=== PATIENT | male | born 1955 | race Caucasian/White ===

== ENCOUNTER 2018-07-29 12:00 | Emergency (ER) | payer BC ==
[2018-07-29 12:06] VITALS: TEMP 98.1
--- NOTE | 2018-07-29 15:13 | ED ---
General Adult HPI - General Chief complaint: Extremity Problem,Nontraumatic Stated complaint: swollen legs-sent by Source: patient Mode of arrival: ambulatory Limitations: no limitations - History of Present Illness Initial comments: Dictation was produced using [employer] dictation software. please excuse any grammatical, word or spelling errors. Chief Complaint: 62-year-old male with past medical history of hypertension and osteoporosis arthritis presents via instruction from his primary care physician for Lasix administration. History of Present Illness: Patient is 62-year-old male with past medical history of hypertension and also arthritis presents via instruction by his primary care physician come in for IV Lasix. Patient states he's been dealing with chronic lower extremity water retention for the past several weeks. He has been on 40 mg of by mouth Lasix a day. Patient states that he was told to come to the emergency department because of excessive water retention. He is unable to work given that his legs are so swollen that he can put on issues. Denies any shortness of breath. Patient states that he had an ultrasound of his heart performed several years ago with negative results. Patient has no other complaints. The ROS documented in this emergency department record has been reviewed and confirmed by me. Those systems with pertinent positive or negative responses have been documented in the HPI. All other systems are other negative and/or noncontributory. - Related Data Home Medications Medication Instructions Recorded Confirmed Furosemide [Lasix] 20 mg PO BID 07/29/18 07/29/18 Lisinopril [Prinivil] 20 mg PO DAILY 07/29/18 07/29/18 Multivitamins, Thera [Multivitamin 1 tab PO DAILY 07/29/18 07/29/18 (formulary)] Potassium Chloride [Klor-Con 10] 10 meq PO DAILY 07/29/18 07/29/18 Spironolactone 50 mg PO DAILY 07/29/18 07/29/18 Sulfamethoxazole/Trimethoprim 1 tab PO BID 07/29/18 07/29/18 [Bactrim DS 800-160 mg] amLODIPine BESYLATE [Norvasc] 2.5 mg PO DAILY 07/29/18 07/29/18 Previous Rx's Medication Instructions Recorded Potassium Chloride [Klor-Con 20 meq PO DAILY 3 Days #3 packet 07/29/18 Packets] Allergies Allergy/AdvReac Type Severity Reaction Status Date / Time No Known Allergies Allergy Verified 07/29/18 14:52 Review of Systems ROS Statement: Those systems with pertinent positive or pertinent negative responses have been documented in the HPI. ROS Other: All systems not noted in ROS Statement are negative. Past Medical History Past Medical History: Hypertension, Osteoarthritis (OA) Additional Past Medical History / Comment(s): water retention History of Any Multi-Drug Resistant Organisms: None Reported Past Surgical History: Orthopedic Surgery Past Psychological History: No Psychological Hx Reported Smoking Status: Former smoker Past Alcohol Use History: Occasional Past Drug Use History: None Reported General Exam - General Exam Comments Initial Comments: PHYSICAL EXAM: General Impression: Alert and oriented x3, not in acute distress HEENT: Normocephalic atraumatic, extra-ocular movements intact, pupils equal and reactive to light bilaterally, mucous membranes moist. Cardiovascular: Heart regular rate and rhythm, S1&S2 audible, no murmurs, rubs or gallops Chest: Lungs clear to auscultation bilaterally, no rhonchi, no wheeze, no rales Abdomen: Bowel sounds present, abdomen soft, non-tender, non-distended, no organomegaly Musculoskeletal: Pulses present and equal in all extremities, 3+ pitting edema bilateral lower extremities. There is a compression bandage placed on bilateral lower extremities Motor: Power 5/5 bilaterally, no focal deficits noted Neurological: CN II-XII grossly intact, no focal motor or sensory deficits noted Skin: Intact with no visualized rashes Psych: Normal affect and mood Limitations: no limitations Course Vital Signs 07/29/18 12:03 Temperature 98.1 F Pulse Rate 94 Respiratory 20 Rate Blood Pressure 142/78 O2 Sat by Pulse 98 Oximetry Medical Decision Making - Medical Decision Making ED course: 62-year-old male presents with instruction from primary care physician come to the emergency department for IV Lasix vital signs upon arrival are within acceptable limits. Patient is hemodynamically stable. No signs of shortness of breath. Denies any symptoms of orthopnea. No clinical suspicion of decompensated heart failure. Patient's swelling is only limited to his legs. There is no clinical suspicion of nephrotic or nephritic syndrome He has had negative echocardiogram couple years ago. Discussed patient case in detail with patient's primary care physician Dr. Mcgee. He does recall having patient sent in for Lasix administration. Labs were performed on the and . Patient is not hypokalemic. His creatinine was 0.90 1.17 respectively. Platelets reasonable for patient be given IV Lasix. Patient has borderline potassium level. He will be given 3 days of potassium supplementation. Told to follow-up with his primary care physician in 2-3 days for repeat evaluation. Patient told to lie flat with legs elevated to reduce swelling. He is told to maintain bilateral lower extremity bandages for treatment of fluid retention in the lower extremities. Patient understandable agreeable to disposition. To return to the emergency department with any worsening symptoms especially palpitations or generalized weakness. Disposition Clinical Impression: Edema Disposition: HOME SELF-CARE Condition: Good Prescriptions: Potassium Chloride [Klor-Con Packets] 20 meq PO DAILY 3 Days #3 packet Is patient prescribed a controlled substance at d/c from ED?: No Referrals: Brock Mcgee III, MD [Primary Care Provider] - 1-2 days Time of Disposition: 15:21
[2018-07-29] MEDS ORDERED: FUROSEMIDE 10 MG/ML 4 ML VIAL IV STA (15:18)
[2018-07-29 16:37] VITALS: BP 160/79; PULSE 82; RESP 18
== END 2018-07-29 16:57 | disposition home or self-care (01) ==
LOC: EC 12:00
DX: R60.0 Localized edema (principal); I10 Essential (primary) hypertension; Z87.891 Personal history of nicotine dependence; Z79.899 Other long term (current) drug therapy
CPT/HCPCS: 99283; 96374; J1940

== ENCOUNTER → 2020-12-08 | Outpatient (CLI) | payer BC, MEDICARE ==
[2020-12-08 16:23] VITALS: BP 131/80; PULSE 91; RESP 18; TEMP 98.4; BMI 54.1
--- NOTE | 2020-12-08 17:16 | P.HPBAR ---
Bariatric H&P - History & Physicial H&P Date: 12/08/20 History & Physicial: Visit/CC: initial visit Patient initial contact: Initial weight: Initial weight in pounds: Height: 5 ft 4.5 in Initial BMI: Last weight: Current weight: 145.15 kg Current weight in pounds: 320.00 Current BMI: 54.1 Mongo body weight (based on NIH guidelines): 60.328 kg Excess body weight loss: The patient is a 65 year-old M who presents for Bariatric Assessment. DATE OF SERVICE: 12/08/2020 REASON FOR CONSULTATION: Initial bariatric evaluation HISTORY OF PRESENT ILLNESS: Jerome Sánchez is a 65-year-old male who comes with lifelong morbid obesity. He has friends who had the sleeve. He is looking into the sleeve as well. He ambulates with a cane. His highest weight was 330 pounds. He has tried Nutrisystem for weight loss and he did lose weight. He has tried Keto diet. His brother has troubles with his weight as well. He denies previous abdominal surgery. He denies moderate gastroesophageal reflux disease. He denies dysphagia. His father had leukemia. His brother has diabetes. He has asthma, COPD. He has sleep apnea but cannot afford the machine. He has diverticular disease. He comes in with lower back and hip pain. He presents in consultation for the first time for surgical weight loss options. At height of 5 feet 4.5 inches, his ideal body weight is 144 pounds. His highest weight is 330 pounds, BMI 55.9. He comes in 319 pounds. His body mass index is 54.1. He is 175 pounds overweight. PAST MEDICAL HISTORY: 1. Morbid obesity due to excess calories 2. Body mass index of 54.1, initial 3. Osteoarthritis of the knees. 4. Osteoarthritis of the lower back. 5. Hypertensive heart disease. 6. Chronic obstructive pulmonary disease 7. Obstructive sleep apnea 8. Diverticulitis of the colon. 9. Osteoarthritis of the hips PAST SURGICAL HISTORY: 1. Denies abdominal surgery HOME MEDICATIONS: Home Medications Medication Instructions Recorded Confirmed Furosemide [Lasix] 20 mg PO BID 07/29/18 12/08/20 Multivitamins, Thera [Multivitamin 1 tab PO DAILY 07/29/18 12/08/20 (formulary)] Potassium Chloride [Klor-Con 10] 10 meq PO DAILY 07/29/18 12/08/20 Spironolactone 50 mg PO DAILY 07/29/18 12/08/20 Sulfamethoxazole/Trimethoprim 1 tab PO BID 07/29/18 12/08/20 [Bactrim DS 800-160 mg] amLODIPine BESYLATE [Norvasc] 2.5 mg PO DAILY 07/29/18 12/08/20 lisinopriL [Prinivil] 20 mg PO DAILY 07/29/18 12/08/20 Previous Rx's Medication Instructions Recorded Potassium Chloride [Klor-Con 20 meq PO DAILY 3 Days #3 packet 07/29/18 Packets] ALLERGIES: Allergies Allergy/AdvReac Type Severity Reaction Status Date / Time No Known Allergies Allergy Verified 12/08/20 15:54 SOCIAL HISTORY: Past tobacco use. FAMILY HISTORY: No family history of ulcerative colitis disease or Crohn's disease. Family history of morbid obesity. No lupus in the family. No reports of stomach or esophageal cancer. His father had leukemia. His brother has diabetes. REVIEW OF ORGAN SYSTEMS: CONSTITUTIONAL: At height of 5 feet 4.5 inches, his ideal body weight is 144 pounds. His highest weight is 330 pounds, BMI 55.9. He comes in 319 pounds. His body mass index is 54.1. He is 175 pounds overweight. HEENT: Denies any active troubles with vision or hearing. ENDOCRINE: Denies diabetes. No hypothyroidism. CARDIOVASCULAR: Past reports of palpitations or heart attacks or chest pain. Has congestive heart failure with hypertensive heart disease. RESPIRATORY: Has daytime somnolence. Has asthma. Has sleep apnea, untreated. GASTROINTESTINAL: Denies any bright red blood per rectum. No diarrhea. No constipation. Has diverticular disease of the colon. MUSCULOSKELETAL: Has lower back pain and joint pain. Has osteoarthritis of the knees. History of bilateral lower extremity edema. NEURO: No headaches. No seizure disorders. PSYCH: Denies depression. No suicidal ideation. RHEUMATOLOGIC: No lupus. No rheumatoid arthritis. HEMATOLOGIC: Denies any abnormal bleeding or bruising. No personal history of DVTs. SKIN: No rash. No skin cancer. PHYSICAL EXAM: VITAL SIGNS: Height 5 foot 4.5 inches, weight 319 pounds. BMI 54.1 Vital Signs Temp 98.4 F 12/08/20 15:47 Pulse 91 01/27/21 15:47 Resp 18 12/08/20 15:47 BP 131/80 12/08/20 15:47 Pulse Ox GENERAL: Well-developed in no acute distress. HEENT: No scleral icterus. Extraocular movements grossly intact. Hears conversational speech. No nasal drainage. NECK: Supple without lymphadenopathy. CHEST: Nonlabored respirations with equal bilateral excursions. CARDIOVASCULAR: Regular rate and regular rhythm. Distal 2+ pulses. ABDOMEN: Obese, soft, nontender, nondistended. MUSCULOSKELETAL: No clubbing, cyanosis. Ambulates with a cane NEURO: No focal or lateralizing signs. Cranial nerves 2 through 12 grossly within normal limits. PSYCH: Appropriate affect. Alert and oriented to person, place and time. SKIN: Good skin turgor. Well perfused. ASSESSMENT: 1. Morbid obesity due to excess calories 2. Body mass index of 54.1, initial 3. Osteoarthritis of the knees. 4. Osteoarthritis of the lower back. 5. Hypertensive heart disease. 6. Chronic obstructive pulmonary disease 7. Obstructive sleep apnea 8. Diverticulitis of the colon. 9. Osteoarthritis of the hips PLAN: 1. Surgical options including a band, gastric bypass, sleeve gastrectomy were described in detail. Alternatives such as gastric balloon including duodenal switch were described. She is looking into the gastric bypass. 2. The [place] bariatric surgical collaborative data and outcomes calculator were described with surgical options. 3. Recommend a bariatric metabolic panel to evaluate for micro- including macronutrient deficiencies. 4. For history of daytime somnolence, recommend evaluation and treatment for sleep apnea. 5. Dietary surveillance and counseling was reviewed. Increased protein intake over 65 grams daily advised. 6. Will need cardiac risk assessment. 7. Recommend medical risk assessment. 8. Psych assessment per insurance guidelines. 9. Recommend upper endoscopy. 10. Recommend 12-lead EKG. Thank you for this consultation. Past Medical History Past Medical History: Hypertension, Osteoarthritis (OA) Additional Past Medical History / Comment(s): water retention; oral surgery 1970s History of Any Multi-Drug Resistant Organisms: None Reported Past Surgical History: Orthopedic Surgery Past Anesthesia/Blood Transfusion Reactions: No Reported Reaction Past Psychological History: No Psychological Hx Reported Smoking Status: Former smoker Past Alcohol Use History: Occasional Past Drug Use History: None Reported Surgical - Exam Vital Signs Temp Pulse Resp BP 98.4 F 91 18 131/80 12/08/20 15:47 12/08/20 15:47 12/08/20 15:47 12/08/20 15:47 Bariatric Checklist Checklist: Plan: Checklist: EGD: 1. Hiatal hernia: 2. H. Pylori: HgbA1c: Vitamin D: Smoking: Former smoker Primary care physician referral: Dr. Hamilton / Mai MARIN Psychiatry clearance: Cardiology clearance: Sleep study: Diet journal: VTE risk score: VTE risk level: Rehab needs at discharge:
== END | disposition home or self-care (01) ==
LOC: BARWHC3 15:29
PROVIDERS: ATTEND Surgery Plastic and Reconstructive Surgery
DX: E66.01 Morbid (severe) obesity due to excess calories (principal); M17.0 Bilateral primary osteoarthritis of knee; I11.9 Hypertensive heart disease without heart failure; J44.9 Chronic obstructive pulmonary disease, unspecified; G47.33 Obstructive sleep apnea (adult) (pediatric); K57.32 Diverticulitis of large intestine without perforation or abscess without bleeding; M16.6 Other bilateral secondary osteoarthritis of hip; Z68.43 Body mass index [BMI] 50.0-59.9, adult; Z79.899 Other long term (current) drug therapy; Z87.891 Personal history of nicotine dependence; Z79.83 Long term (current) use of bisphosphonates
CPT/HCPCS: 99211

== ENCOUNTER → 2020-12-15 | Outpatient (CLI) | payer MEDICARE ==
[2020-12-15 22:51] LABS: HCT 39.8 % (39.6-50.0); HGB 13.7 g/dL (13.0-17.0); MCH 30.8 pg (27.0-32.0); MCHC 34.4 g/dL (32.0-37.0); MCV 89.4 fL (80.0-97.0); Mean Platelet Volume 10.8 fL (9.5-12.2); Platelet Count 253 X 10*3/uL (140-440); RBC 4.45 X 10*6/uL (4.40-5.60); RDW 13.3 % (11.5-14.5); WBC 9.67 X 10*3/uL (4.50-10.00)
[2020-12-16 00:04] LABS: INR 1.03 (0.90-1.11); Partial Thromboplastin Time 34.4 sec (23.5-31.0); Prothrombin Time 11.2 sec (9.9-11.9)
[2020-12-16 01:21] LABS: Hemoglobin A1C 5.2 % (4.0-6.0)
[2020-12-16 05:03] LABS: % Iron Saturation 16.97 (15.00-50.00); African American GFR (CKD) 51.6 (60.0-200.0); Albumin 4.4 g/dL (3.80-4.90); Albumin/Globulin Ratio 1.76 (1.60-3.17); Anion Gap 10.3 mmol/L (4.00-12.00); BUN/Creat Ratio 16.88 Ratio (12.00-20.00); Calcium 9.6 mg/dL (8.7-10.3); Carbon Dioxide 24.7 mmol/L (21.6-31.8); Chol/HDL Ratio 5.19; Globulin 2.5 g/dL (1.6-3.3); LDL Cholesterol,Calculated 74.2 mg/dL (0.0-131.0); Magnesium 1.8 mg/dL (1.5-2.4); Non-African American GFR(CKD) 44.5 (60.0-200.0); Phosphorus 3.5 mg/dL (2.4-5.1); Potassium 4.1 mmol/L (3.5-5.5); Total Bilirubin 0.6 mg/dL (0.3-1.2); Total Protein 6.9 g/dL (6.2-8.2); VLDL Calculation 55.8 mg/dL (5.00-40.00)
[2020-12-16 05:10] LABS: Prostate Specific Antigen 0.4 ng/mL (0.0-4.5)
[2020-12-16 05:42] LABS: Ferritin 565.1 ng/mL (22.0-322.0); Folate, Serum 15.2 ng/mL
[2020-12-17 06:43] LABS: Vitamin A 47 ug/dL (38-106)
== END | disposition home or self-care (01) ==
LOC: LABWHC1 12-14 09:53
PROVIDERS: ATTEND Surgery Plastic and Reconstructive Surgery
DX: N18.2 Chronic kidney disease, stage 2 (mild) (principal); R35.0 Frequency of micturition; E66.01 Morbid (severe) obesity due to excess calories; K50.90 Crohn's disease, unspecified, without complications; K74.1 Hepatic sclerosis; E55.9 Vitamin D deficiency, unspecified; K90.89 Other intestinal malabsorption; D50.8 Other iron deficiency anemias; E89.1 Postprocedural hypoinsulinemia
CPT/HCPCS: 36415; 80053; 80061; 82306; 82525; 82607; 82728; 82746; 83036; 83540; 83550; 83735; 83970; 84100; 84134; 84153; 84255; 84425; 84443; 84590; 84630; 85027; 85610; 85730; 93005

== ENCOUNTER → 2020-12-29 | Outpatient (CLI) | payer MEDICARE ==
--- NOTE | 2020-12-29 15:19 | US ---
LOWER EXTREMITY VENOUS INSUFFICIENCY CLINICAL HISTORY: l197.812 NONPRESSURE CHRONIC ULCER OF OTHER PART O. SIDE PERFORMED: Right 1) Color flow is present and patency is documented in the following vessels. No DVT or SVT is noted . Common Femoral Vein Deep Femoral Vein Femoral Vein Popliteal Vein Proximal Calf Veins Greater Saph Vein Upper Small Saph Vein 2) There is venous reflux noted at the following venous levels: proximal right femoral vein IMPRESSION: Venous reflux as noted.
--- NOTE | 2021-01-05 10:12 | P.ARTDOP ---
Arterial Doppler LOWER EXTREMITY ARTERIAL DOPPLER: DATE OF SERVICE: 12/29/2020 Reason for study: Bilateral calf ulcers. Doppler waveforms: Multiphasic bilaterally throughout. Pulse volume recording: []. Pressure gradients: None significant. Ankle-brachial indices: 0.92 on the right and 0.96 on the left. Toe brachial indices: 0.69 on the right, 0.65 on the left Impression: Normal study.
== END | disposition home or self-care (01) ==
LOC: RADUSWWP 13:43
PROVIDERS: ATTEND Family Medicine
DX: I87.2 Venous insufficiency (chronic) (peripheral) (principal)
CPT/HCPCS: 93923

== ENCOUNTER → 2021-04-05 | Outpatient (CLI) | payer MEDICARE ==
--- NOTE | 2021-04-07 20:01 | ECHOF ---
Referral Reason:R60.0 Localized edema MEASUREMENTS -------- HEIGHT: 162.6 cm WEIGHT: 147.0 kg BP: IVSd: 1.3 cm (0.6 - 1.1) LVIDd: 4.9 cm (3.9 - 5.3) LVPWd: 1.3 cm (0.6 - 1.1) EDV(Teich): 114 ml IVSs: 1.9 cm LVIDs: 3.1 cm LVPWs: 1.8 cm %IVS Thck: 44 % ESV(Teich): 39 ml EF(Teich): 66 % %FS: 36 % SV(Teich): 75 ml LA Diam: 3.1 cm (2.7 - 3.8) RVIDd: 3.3 cm (< 3.3) LALs A4C: 5.4 cm LAAs A4C: 17.2 cm LAESV A-L A4C: 47 ml LAESV MOD A4C: 45 ml LALs A2C: 4.9 cm LAAs A2C: 15.9 cm LAESV A-L A2C: 44 ml LAESV MOD A2C: 39 ml LAESV(A-L): 47 ml LAESV Index (A-L): 19.66 ml/m Ao Diam: 3.8 cm (2.0 - 3.7) AV Cusp: 2.1 cm (1.5 - 2.6) EPSS: 0.3 cm MV E Jhon: 0.94 m/s MV DecT: 129 ms MV Dec Wallace: 7.3 m/s MV A Jhon: 1.09 m/s MV E/A Ratio: 0.86 MV PHT: 37 ms AV Vmax: 1.60 m/s AV maxP.28 mmHg TR Vmax: 2.08 m/s TR maxP.27 mmHg RAP: 5.00 mmHg RVSP: 22.27 mmHg MV EF SLOPE: 107.08 mm/s (70 - 150) MV EXCURSION: 17.33 mm (> 18.000) FINDINGS -------- Sinus rhythm. This was a technically adequate study. The left ventricular size is normal. There is moderate concentric left ventricular hypertrophy. O verall left ventricular systolic function is normal with, an EF between 60 - 65 %. The right ventricle is mildly enlarged. Normal LA size by volume 22+/-6 ml/m2. The right atrium is normal in size. Interatrial and interventricular septum intact. There is mild aortic valve sclerosis. The mitral valve is normal. Mild tricuspid regurgitation present. Right ventricular systolic pressure is normal at < 35 mmHg. Trace/mild (physiologic) pulmonic regurgitation. The aortic root is dilated measuring 3.8cm. IVC Not well visulized. There is no pericardial effusion. CONCLUSIONS -------- 1. The left ventricular size is normal. 2. There is moderate concentric left ventricular hypertrophy. 3. Overall left ventricular systolic function is normal with, an EF between 60 - 65 %. 4. The right ventricle is mildly enlarged. 5. There is mild aortic valve sclerosis. 6. Mild tricuspid regurgitation present. 7. Trace/mild (physiologic) pulmonic regurgitation. 8. The aortic root is dilated measuring 3.8cm. 9. There is no pericardial effusion. OPEN DEVELOPER OPERATOR: Apryl Gar RDCS
== END | disposition home or self-care (01) ==
LOC: RADECHMAIN 14:39
PROVIDERS: ATTEND Nurse Practitioner Family
DX: I08.8 Other rheumatic multiple valve diseases (principal)
CPT/HCPCS: 93005; 93306

== ENCOUNTER → 2021-05-02 | Outpatient (CLI) | payer MEDICARE | LOC: BARWHC3 08:47 | PROVIDERS: ATTEND Surgery Plastic and Reconstructive Surgery | DX: E66.01 Morbid (severe) obesity due to excess calories (principal); Z71.3 Dietary counseling and surveillance | CPT/HCPCS: 99211 ==

== ENCOUNTER 2021-05-23 07:48 | Day surgery (SDC) | payer MEDICARE ==
[2021-05-19 14:33] VITALS: BMI 54.9
--- NOTE | 2021-05-23 07:38 | P.GSHP ---
History of Present Illness H&P Date: 05/23/21 CHIEF COMPLAINT: GERD HISTORY OF PRESENT ILLNESS: The patient is a 65-year-old male who presents reports gastroesophageal reflux disease. Upper endoscopy was offered for further evaluation and management. PAST MEDICAL HISTORY: Please see list. PAST SURGICAL HISTORY: Please see list. MEDICATIONS: Please see list. ALLERGIES: Please see list. SOCIAL HISTORY: No illicit drug use FAMILY HISTORY: No reports of Crohn disease or ulcerative colitis. REVIEW OF ORGAN SYSTEMS: CONSTITUTIONAL: No reports of fevers or chills. GI: Denies any blood in stools or constipation. PHYSICAL EXAM: VITAL SIGNS: Stable GENERAL: Well-developed and pleasant in no acute distress. HEENT: No scleral icterus. Extraocular movements grossly intact. Moist buccal mucosa. NECK: Supple without lymphadenopathy. CHEST: Unlabored respirations. Equal bilateral excursions. CARDIOVASCULAR: Regular rate and rhythm. Distal 2+ pulses. ABDOMEN: Soft, nondistended. MUSCULOSKELETAL: No clubbing, cyanosis, or edema. ASSESSMENT: 1. Gastroesophageal reflux disease PLAN: 1. Recommend proceeding with an upper endoscopy Past Medical History Past Medical History: Hypertension, Osteoarthritis (OA) Additional Past Medical History / Comment(s): water retention-slight edema lower legs and joby feet, occ migraines, diverticulitis, History of Any Multi-Drug Resistant Organisms: None Reported Past Surgical History: Orthopedic Surgery Additional Past Surgical History / Comment(s): joby knee arthoscopy x (2 left, one rt knee) , left knee surgery, oral surgery, Past Anesthesia/Blood Transfusion Reactions: No Reported Reaction Smoking Status: Former smoker - Past Family History Father Family Medical History: Cancer Additional Family Medical History / Comment(s): leukemia Medications and Allergies Home Medications Medication Instructions Recorded Confirmed Type Albuterol Inhaler [Ventolin Hfa 2 puff INHALATION RT-QID PRN 12/13/20 05/19/21 History Inhaler] Cholecalciferol [Vitamin D3 (25 25 mcg PO BID 12/13/20 05/19/21 History Mcg = 1000 Iu)] Cyanocobalamin (Vitamin B-12) 1,000 mcg PO DAILY 12/13/20 05/19/21 History [Vitamin B-12] Furosemide [Lasix] 40 mg PO BID 12/13/20 05/19/21 History Ginseng 250 mg PO BID 12/13/20 05/19/21 History Glucosamine Sulfate 500 mg PO BID 12/13/20 05/19/21 History Lisinopril-Hctz 20-12.5 mg 1 tab PO BID 12/13/20 05/19/21 History [Zestoretic 20-12.5] Loratadine [Claritin] 10 mg PO HS 12/13/20 05/19/21 History Montelukast [Singulair] 10 mg PO HS 12/13/20 05/19/21 History Multivitamins, Thera [Multivitamin 1 tab PO DAILY 12/13/20 05/19/21 History (formulary)] [place]-3/Dha/Epa/Fish Oil [Fish Oil 1 each PO BID 12/13/20 05/19/21 History 500 mg Softgel] Omeprazole 20 mg PO DAILY 12/13/20 05/19/21 History Potassium Chloride [Klor-Con 10] 10 meq PO DAILY 12/13/20 05/19/21 History Spironolactone 100 mg PO DAILY 12/13/20 05/19/21 History traMADol HCL [Ultram] 100 mg PO Q12HR PRN 12/13/20 05/19/21 History Aspirin [Adult Low Dose Aspirin EC] 81 mg PO DAILY 05/19/21 05/19/21 History Allergies Allergy/AdvReac Type Severity Reaction Status Date / Time No Known Allergies Allergy Verified 05/19/21 14:20
[~2021-05-23 07:48] MED LIST: LACTATED RINGERS 1,000 ML IV SCH
[2021-05-23 08:28] VITALS: TEMP 97.2
[2021-05-23] MEDS ORDERED: MIDAZOLAM 2 MG/2 ML VIAL ONE (08:35)
[2021-05-23] MEDS ORDERED: KETAMINE 10 MG/ML 20 ML VIAL ONE (08:35)
[2021-05-23] MEDS ORDERED: PROPOFOL 10 MG/ML 20 ML VIAL IV ONE (08:35)
--- NOTE | 2021-05-23 08:53 | P.PCN ---
Date of Procedure: 05/23/21 Description of Procedure: PREOPERATIVE DIAGNOSIS: Gastroesophageal reflux disease. Morbid obesity. POSTOPERATIVE DIAGNOSIS: Morbid obesity. Gastritis. Gastroesophageal reflux disease. Diaphragmatic hiatal hernia OPERATION: Esophagogastroduodenoscopy with biopsies along antrum. SURGEON: Fariha Quijano MD ANESTHESIA: MAC. INDICATIONS: The patient is a 65-year-old male who presents with a history of reflux disease. Benefits and risks of the procedure were described. Informed consent was obtained. DESCRIPTION: The patient was brought into the endoscopy suite and laid in the left lateral decubitus position. An Olympus gastroscope was passed along the posterior oropharynx down to the distal esophagus where the squamocolumnar junction was encountered at 40 cm from the incisors. The stomach was entered and no bile reflux was found. Additional findings are listed below. Biopsies with cold for ceps were obtained of the antrum. The first through third portion of the duodenum was examined and unremarkable. Retroflexion of the scope confirmed Hill grade 3 lower esophageal valve. The squamocolumnar junction demonstrated LA grade B erosive esophagitis. The stomach was desufflated. The patient tolerated the procedure well. FINDINGS: Squamocolumnar junction 40 cm from the incisors. Diaphragmatic hiatus at 41 cm. Hiatal hernia, 1 cm Hill grade 3 lower esophageal valve. LA grade B erosive esophagitis. No active duodenitis. Chronic gastritis RECOMMENDATIONS: Upper endoscopy as needed. Plan - Discharge Summary New Discharge Prescriptions: New Omeprazole [PriLOSEC] 40 mg PO DAILY #14 cap Continue Multivitamins, Thera [Multivitamin (formulary)] 1 tab PO DAILY Glucosamine Sulfate 500 mg PO BID Cyanocobalamin (Vitamin B-12) [Vitamin B-12] 1,000 mcg PO DAILY [place]-3/Dha/Epa/Fish Oil [Fish Oil 500 mg Softgel] 1 each PO BID Ginseng 250 mg PO BID Cholecalciferol [Vitamin D3 (25 Mcg = 1000 Iu)] 25 mcg PO BID Albuterol Inhaler [Ventolin Hfa Inhaler] 2 puff INHALATION RT-QID PRN PRN Reason: Shortness Of Breath Montelukast [Singulair] 10 mg PO HS Loratadine [Claritin] 10 mg PO HS Furosemide [Lasix] 40 mg PO BID Lisinopril-Hctz 20-12.5 mg [Zestoretic 20-12.5] 1 tab PO BID traMADol HCL [Ultram] 100 mg PO Q12HR PRN PRN Reason: Pain Spironolactone 100 mg PO DAILY Potassium Chloride [Klor-Con 10] 10 meq PO DAILY Aspirin [Adult Low Dose Aspirin EC] 81 mg PO DAILY Discontinued Omeprazole 20 mg PO DAILY Discharge Medication List Albuterol Inhaler [Ventolin Hfa Inhaler] 2 puff INHALATION RT-QID PRN 12/13/20 [History] Cholecalciferol [Vitamin D3 (25 Mcg = 1000 Iu)] 25 mcg PO BID 12/13/20 [History] Cyanocobalamin (Vitamin B-12) [Vitamin B-12] 1,000 mcg PO DAILY 12/13/20 [History] Furosemide [Lasix] 40 mg PO BID 12/13/20 [History] Ginseng 250 mg PO BID 12/13/20 [History] Glucosamine Sulfate 500 mg PO BID 12/13/20 [History] Lisinopril-Hctz 20-12.5 mg [Zestoretic 20-12.5] 1 tab PO BID 12/13/20 [History] Loratadine [Claritin] 10 mg PO HS 12/13/20 [History] Montelukast [Singulair] 10 mg PO HS 12/13/20 [History] Multivitamins, Thera [Multivitamin (formulary)] 1 tab PO DAILY 12/13/20 [History] [place]-3/Dha/Epa/Fish Oil [Fish Oil 500 mg Softgel] 1 each PO BID 12/13/20 [History] Potassium Chloride [Klor-Con 10] 10 meq PO DAILY 12/13/20 [History] Spironolactone 100 mg PO DAILY 12/13/20 [History] traMADol HCL [Ultram] 100 mg PO Q12HR PRN 12/13/20 [History] Aspirin [Adult Low Dose Aspirin EC] 81 mg PO DAILY 05/19/21 [History] Omeprazole [PriLOSEC] 40 mg PO DAILY #14 cap 05/23/21 [Rx] [place] [facility]ment(s[facility]Ref[place] [facility] [place] Patient Instructions/Handouts: Gastritis (DC), Hiatal Hernia (DC) Activity/Diet/Wound Care/Special Instructions: New prescription at local pharmacy Discharge Disposition: HOME SELF-CARE
[2021-05-23 09:11] VITALS: BP 110/62; PULSE 92; RESP 20
== END 2021-05-23 09:28 | disposition home or self-care (01) ==
LOC: ORWHC2ENDO 07:48
PROVIDERS: ATTEND Surgery Plastic and Reconstructive Surgery
DX: K29.50 Unspecified chronic gastritis without bleeding (principal); K44.9 Diaphragmatic hernia without obstruction or gangrene; K21.9 Gastro-esophageal reflux disease without esophagitis; K22.10 Ulcer of esophagus without bleeding; Z87.19 Personal history of other diseases of the digestive system; Z87.891 Personal history of nicotine dependence; E66.01 Morbid (severe) obesity due to excess calories; Z68.43 Body mass index [BMI] 50.0-59.9, adult; I10 Essential (primary) hypertension; M19.90 Unspecified osteoarthritis, unspecified site; Z80.6 Family history of leukemia; E78.5 Hyperlipidemia, unspecified; J44.9 Chronic obstructive pulmonary disease, unspecified; G47.33 Obstructive sleep apnea (adult) (pediatric); E11.9 Type 2 diabetes mellitus without complications; Z98.890 Other specified postprocedural states; G43.909 Migraine, unspecified, not intractable, without status migrainosus; Z79.82 Long term (current) use of aspirin; Z79.899 Other long term (current) drug therapy
CPT/HCPCS: 88305; 88342; 43239; J2250; J2704

== ENCOUNTER → 2021-07-28 | Outpatient (CLI) | payer MEDICARE ==
[2021-07-28 15:59] LABS: Basophils % (A) 0 %; Eosinophils # (A) 0.2 k/uL (0-0.7); Eosinophils % (A) 2 %; HGB 14.2 gm/dL (13.0-17.5); Lymphocytes # (A) 1.2 k/uL (1.0-4.8); Lymphocytes % (A) 15 %; MCH 32.1 pg (25.0-35.0); MCHC 35.5 g/dL (31.0-37.0); MCV 90.3 fL (80.0-100.0); Mean Platelet Volume 7.9; Monocytes # (A) 0.7 k/uL (0-1.0); Monocytes % (A) 8 %; Neutrophils # (A) 6.1 k/uL (1.3-7.7); Neutrophils % (A) 73 %; Platelet Count 192 k/uL (150-450); RBC 4.42 m/uL (4.30-5.90); RDW 13.9 % (11.5-15.5); WBC 8.4 k/uL (3.8-10.6)
[2021-07-28 16:14] LABS: Calcium 9.5 mg/dL (8.4-10.2); Potassium 4.3 mmol/L (3.5-5.1); Total Bilirubin 0.7 mg/dL (0.2-1.3)
== END | disposition home or self-care (01) ==
LOC: LABPAT 14:45
PROVIDERS: ATTEND Surgery Plastic and Reconstructive Surgery
DX: Z01.812 Encounter for preprocedural laboratory examination (principal)
CPT/HCPCS: 36415; 80053; 85025

== ENCOUNTER 2021-08-01 13:49 | Inpatient (IN) | payer MEDICARE ==
--- NOTE | 2021-08-01 09:01 | P.GSHP ---
History of Present Illness H&P Date: 08/01/21 CHIEF COMPLAINT: Morbid obesity HISTORY OF PRESENT ILLNESS: Jerome Sánchez is a 65-year-old male who comes with lifelong morbid obesity. He has friends who had the sleeve. He is looking into the sleeve as well. He ambulates with a cane. His highest weight was 330 pounds. He has tried Nutrisystem for weight loss and he did lose weight. He has tried Keto diet. His brother has troubles with his weight as well. He denies previous abdominal surgery. He comes in with lower back and hip pain. He has completed medical risk assessment and presents today for sleeve gastrectomy At height of 5 feet 4.5 inches, his ideal body weight is 144 pounds. His highest weight is 330 pounds, BMI 55.9. He comes in 309 pounds. His body mass index is 53.2. He is 165 pounds overweight. PAST MEDICAL HISTORY: 1. Morbid obesity due to excess calories 2. Body mass index of 54.1, initial 3. Osteoarthritis of the knees. 4. Osteoarthritis of the lower back. 5. Hypertensive heart disease. 6. Chronic obstructive pulmonary disease 7. Obstructive sleep apnea 8. Diverticulitis of the colon. 9. Osteoarthritis of the hips PAST SURGICAL HISTORY: 1. Denies abdominal surgery HOME MEDICATIONS: Home Medications Medication Instructions Recorded Confirmed Furosemide [Lasix] 20 mg PO BID 07/29/18 12/08/20 Multivitamins, Thera [Multivitamin 1 tab PO DAILY 07/29/18 12/08/20 (formulary)] Potassium Chloride [Klor-Con 10] 10 meq PO DAILY 07/29/18 12/08/20 Spironolactone 50 mg PO DAILY 07/29/18 12/08/20 Sulfamethoxazole/Trimethoprim 1 tab PO BID 07/29/18 12/08/20 [Bactrim DS 800-160 mg] amLODIPine BESYLATE [Norvasc] 2.5 mg PO DAILY 07/29/18 12/08/20 lisinopriL [Prinivil] 20 mg PO DAILY 07/29/18 12/08/20 Previous Rx's Medication Instructions Recorded Potassium Chloride [Klor-Con 20 meq PO DAILY 3 Days #3 packet 07/29/18 Packets] ALLERGIES: Allergies Allergy/AdvReac Type Severity Reaction Status Date / Time No Known Allergies Allergy Verified 12/08/20 15:54 SOCIAL HISTORY: Past tobacco use. FAMILY HISTORY: No family history of ulcerative colitis disease or Crohn's disease. Family history of morbid obesity. No lupus in the family. No reports of stomach or esophageal cancer. His father had leukemia. His brother has diabetes. REVIEW OF ORGAN SYSTEMS: CONSTITUTIONAL: At height of 5 feet 4.5 inches, his ideal body weight is 144 pounds. His highest weight is 330 pounds, BMI 55.9. He comes in 319 pounds. His body mass index is 54.1. He is 175 pounds overweight. HEENT: Denies any active troubles with vision or hearing. ENDOCRINE: Denies diabetes. No hypothyroidism. CARDIOVASCULAR: Past reports of palpitations or heart attacks or chest pain. Has congestive heart failure with hypertensive heart disease. RESPIRATORY: Has daytime somnolence. Has asthma. Has sleep apnea, untreated. GASTROINTESTINAL: Denies any bright red blood per rectum. No diarrhea. No constipation. Has diverticular disease of the colon. MUSCULOSKELETAL: Has lower back pain and joint pain. Has osteoarthritis of the knees. History of bilateral lower extremity edema. NEURO: No headaches. No seizure disorders. PSYCH: Denies depression. No suicidal ideation. RHEUMATOLOGIC: No lupus. No rheumatoid arthritis. HEMATOLOGIC: Denies any abnormal bleeding or bruising. No personal history of DVTs. SKIN: No rash. No skin cancer. PHYSICAL EXAM: VITAL SIGNS: Height 5 foot 4.5 inches, weight 309 pounds. BMI 53.2 GENERAL: Well-developed in no acute distress. HEENT: No scleral icterus. Extraocular movements grossly intact. Hears conversational speech. No nasal drainage. NECK: Supple without lymphadenopathy. CHEST: Nonlabored respirations with equal bilateral excursions. CARDIOVASCULAR: Regular rate and regular rhythm. Distal 2+ pulses. ABDOMEN: Obese, soft, nontender, nondistended. MUSCULOSKELETAL: No clubbing, cyanosis. Ambulates with a cane NEURO: No focal or lateralizing signs. Cranial nerves 2 through 12 grossly within normal limits. PSYCH: Appropriate affect. Alert and oriented to person, place and time. SKIN: Good skin turgor. Well perfused. ASSESSMENT: 1. Morbid obesity due to excess calories 2. Body mass index of 54.1, initial 3. Osteoarthritis of the knees. 4. Osteoarthritis of the lower back. 5. Hypertensive heart disease. 6. Chronic obstructive pulmonary disease 7. Obstructive sleep apnea 8. Diverticulitis of the colon. 9. Osteoarthritis of the hips PLAN: 1. Bariatric options between a sleeve, band and a Chrissie-en-Y gastric bypass were reviewed in detail. The patient elected for a sleeve gastrectomy. Robotic assisted approach described. 2. The [place] [facility] Data was also reviewed with benefits and risks as described. 3. An 8 page second-generation bariatric consent form was reviewed in detail including potential of bleeding, infection, leaks, adequate weight loss, nutritional deficiencies which the patient demonstrated understanding of the risks. 4. A 2 week high-protein low caloric 800 kcal diet described to address hepatomegaly. 5. Preoperative labs including complete metabolic panel and CBC with type and screen recommended. 6. DVT prophylaxis per [place] [facility]. 7. Antibiotic prophylaxis. 8. Inpatient hospitalization anticipated for more than 2 nights. 9. All questions and concerns were addressed with the patient. 10. He is at elevated risk with pre-existing heart disease and BMI over 50.11. Overall, patient has expressed understanding of bariatric care including postoperative diet and commitment of lifestyle. Patient should benefit from surgical intervention for correction of her morbid obesity. Past Medical History Past Medical History: Hypertension, Osteoarthritis (OA) Additional Past Medical History / Comment(s): water retention-slight edema lower legs and joby feet, occ migraines, diverticulitis, History of Any Multi-Drug Resistant Organisms: None Reported Past Surgical History: Orthopedic Surgery Additional Past Surgical History / Comment(s): joby knee arthoscopy x (2 left, one rt knee) , left knee surgery, oral surgery, EGD Past Anesthesia/Blood Transfusion Reactions: No Reported Reaction Smoking Status: Former smoker - Past Family History Father Family Medical History: Cancer Additional Family Medical History / Comment(s): leukemia Medications and Allergies Home Medications Medication Instructions Recorded Confirmed Type Albuterol Inhaler [Ventolin Hfa 2 puff INHALATION RT-QID PRN 12/13/20 07/26/21 History Inhaler] Cholecalciferol [Vitamin D3 (25 25 mcg PO BID 12/13/20 07/26/21 History Mcg = 1000 Iu)] Cyanocobalamin (Vitamin B-12) 1,000 mcg PO DAILY 12/13/20 07/26/21 History [Vitamin B-12] Furosemide [Lasix] 40 mg PO BID 12/13/20 07/26/21 History Ginseng 250 mg PO BID 12/13/20 07/26/21 History Glucosamine Sulfate 500 mg PO BID 12/13/20 07/26/21 History Lisinopril-Hctz 20-12.5 mg 1 tab PO BID 12/13/20 07/26/21 History [Zestoretic 20-12.5] Loratadine [Claritin] 10 mg PO HS 12/13/20 07/26/21 History Montelukast [Singulair] 10 mg PO HS 12/13/20 07/26/21 History Multivitamins, Thera [Multivitamin 1 tab PO DAILY 12/13/20 07/26/21 History (formulary)] Crofton-3/Dha/Epa/Fish Oil [Fish Oil 1 each PO BID 12/13/20 07/26/21 History 500 mg Softgel] Potassium Chloride [Klor-Con 10 ER] 10 meq PO DAILY 12/13/20 07/26/21 History Spironolactone 100 mg PO DAILY 12/13/20 07/26/21 History traMADol HCL [Ultram] 100 mg PO Q12HR PRN 12/13/20 07/26/21 History Aspirin [Adult Low Dose Aspirin EC] 81 mg PO DAILY 05/19/21 07/26/21 History Omeprazole [PriLOSEC] 40 mg PO DAILY #14 cap 05/23/21 07/26/21 Rx Allergies Allergy/AdvReac Type Severity Reaction Status Date / Time No Known Allergies Allergy Verified 07/26/21 10:58
[~2021-08-01 13:49] MED LIST changes: +ACETAMINOPHEN TAB 500 MG TAB PO PRN; +CHLORHEXIDINE GLUCONATE 15 ML CUP MUCOUS MEM PRN; +DEXAMETHASONE SOD PHOSPHATE 4 MG/ML 1 ML VIAL IV ONE; +ENOXAPARIN 40 MG/0.4 ML SYRINGE SQ PRN; +GABAPENTIN 300 MG CAP PO PRN; -LACTATED RINGERS 1,000 ML IV SCH; +MIDAZOLAM 2 MG/2 ML VIAL IV PRN; +ONDANSETRON 4 MG/2 ML VIAL IVP ONE; +PANTOPRAZOLE 40 MG/10 ML VIAL IVP PRN; +TAMSULOSIN 0.4 MG CAP.ER.24H PO PRN; +ceFAZolin 3 GM in SODIUM CHLORIDE 0.9% 100 ML IVPB PRN
[2021-08-01] MEDS: LACTATED RINGERS 1,000 ML IV SCH (14:11)
[2021-08-01 14:53] LABS: Basophils # (A) 0.1 k/uL (0-0.2); Basophils % (A) 0 %; Eosinophils # (A) 0.2 k/uL (0-0.7); Eosinophils % (A) 1 %; HCT 44.4 % (39.0-53.0); HGB 15.7 gm/dL (13.0-17.5); Lymphocytes # (A) 1.1 k/uL (1.0-4.8); Lymphocytes % (A) 8 %; MCH 31.6 pg (25.0-35.0); MCHC 35.3 g/dL (31.0-37.0); MCV 89.4 fL (80.0-100.0); Mean Platelet Volume 7.8; Monocytes # (A) 0.7 k/uL (0-1.0); Monocytes % (A) 5 %; Neutrophils # (A) 11.2 k/uL (1.3-7.7); Neutrophils % (A) 84 %; Platelet Count 250 k/uL (150-450); RBC 4.97 m/uL (4.30-5.90); RDW 14.2 % (11.5-15.5); WBC 13.3 k/uL (3.8-10.6)
[2021-08-01 15:10] LABS: Albumin 4.9 g/dL (3.5-5.0); Calcium 9.9 mg/dL (8.4-10.2); Total Bilirubin 1.3 mg/dL (0.2-1.3); Total Protein 8.3 g/dL (6.3-8.2)
[2021-08-01 15:41] LABS: Potassium 4.3 mmol/L (3.5-5.1)
[2021-08-01] MEDS ORDERED: BUPIVACAINE (PF) 0.5% 30 ML VIAL SQ ONE ×2 (16:05→16:47)
[2021-08-01] MEDS ORDERED: WATER FOR INJECTION, STERILE 10 ML VIAL IV ONE (16:07)
[2021-08-01] MEDS ORDERED: HYDROmorphone (PF) 1 MG/ML ONE (16:07)
[2021-08-01] MEDS ORDERED: NEOSTIGMINE 1 MG/ML 10 ML VIAL ONE (16:07)
[2021-08-01] MEDS ORDERED: fentaNYL (PF) 50 MCG/ML 2 ML AMP ONE (16:07)
[2021-08-01] MEDS ORDERED: ePHEDrine SULFATE/0.9% NACL/PF 50 MG/5 ML SYRINGE IV ONE (16:07)
[2021-08-01] MEDS ORDERED: GLYCOPYRROLATE 0.2 MG/ML 2 ML VIAL ONE (16:07)
[2021-08-01] MEDS ORDERED: ROCURONIUM 10 MG/ML (5 ML VIAL) IV ONE (16:07)
[2021-08-01] MEDS ORDERED: PHENYLEPHRINE-0.9% NACL SYG 1,000 MCG/10 ML SYRINGE ONE (16:07)
[2021-08-01] MEDS ORDERED: SUCCINYLCHOLINE CHLORIDE 100 MG/5 ML SYR IV ONE (16:07)
[2021-08-01] MEDS ORDERED: PROPOFOL 10 MG/ML 20 ML VIAL IV ONE (16:07)
[2021-08-01] MEDS ORDERED: LIDOCAINE 1% INJ 10MG/ML (20 ML MDV) ONE (16:07)
[2021-08-01] MEDS ORDERED: VASOPRESSIN 20 UNIT/ML 1 ML VIAL ONE (16:07)
[2021-08-01] MEDS ORDERED: MIDAZOLAM 2 MG/2 ML VIAL ONE (16:07)
[2021-08-01] MEDS ORDERED: LACTATED RINGERS 1,000 ML IV ONE (16:50)
[2021-08-01] MEDS ORDERED: diphenhydrAMINE 50 MG/ML 1 ML VIAL IVP ONE (17:19)
[2021-08-01] MEDS ORDERED: ALBUTEROL HFA INHALER INHALATION PRN (18:06)
[2021-08-01] MEDS ORDERED: traMADol 50 MG TAB PO PRN (18:06)
[2021-08-01] MEDS ORDERED: DEXAMETHASONE SOD PHOSPHATE 10 MG/ML 1 ML VIAL IV PRN (18:08)
[2021-08-01] MEDS ORDERED: TRIMETHOBENZAMIDE 100 MG/ML 2 ML VIAL IM PRN (18:09)
[2021-08-01] MEDS ORDERED: SODIUM CHLORIDE 0.9% 1,000 ML IV ONE ×2 (18:10→19:26)
[2021-08-01] MEDS ORDERED: NALOXONE 0.4 MG/ML 1 ML VIAL IV PRN (18:10)
[2021-08-01] MEDS: HYDROmorphone 0.5 MG/0.5 ML SYRINGE IVP PRN ×2 (18:17→18:42)
--- NOTE | 2021-08-01 18:20 | P.OP ---
Date of Procedure: 08/01/21 Description of Procedure: SURGEON: ALBERTO LOVE MD PREOPERATIVE DIAGNOSES: 1. Morbid obesity due to excess calories 2. Body mass index of 54.1, initial 3. Osteoarthritis of the knees. 4. Osteoarthritis of the lower back. 5. Hypertensive heart disease with congestive heart failure 6. Chronic obstructive pulmonary disease 7. Obstructive sleep apnea 8. Diverticulitis of the colon. 9. Osteoarthritis of the hips 10. Leukocytosis, pre-existing 11. Hyponatremia, pre-existing 12. Dehydration POSTOPERATIVE DIAGNOSES: 1. Morbid obesity due to excess calories 2. Body mass index of 54.1, initial 3. Osteoarthritis of the knees. 4. Osteoarthritis of the lower back. 5. Hypertensive heart disease with congestive heart failure 6. Chronic obstructive pulmonary disease 7. Obstructive sleep apnea 8. Diverticulitis of the colon. 9. Osteoarthritis of the hips 10. Leukocytosis, pre-existing 11. Hyponatremia, pre-existing 12. Dehydration OPERATION: 1. Robotic assisted daVinci Xi laparoscopic sleeve gastrectomy with 40-Canadian bougie, multiport. 2. Intraoperative esophagogastroduodenoscopy. ANESTHESIA: Gen. local anesthetic ESTIMATED BLOOD LOSS: 5 mL SPECIMENS REMOVED: Sleeve gastrectomy COMPLICATIONS: None. FINDINGS: 1. Negative intraoperative esophagogastrojejunoscopy leak test. 2. No large hiatus hernia. 3. Total of 7 staplers used including 4 - 60 mm green, 2- 60 mm black, 1 - 60mm blue robot saroj used to create the gastric sleeve. 4. Sleeve gastrectomy 31 x 6 cm INDICATIONS: Jerome Sánchez is a 65-year-old male who comes with lifelong morbid obesity. He has friends who had the sleeve. He is looking into the sleeve as well. He ambulates with a cane. His highest weight was 330 pounds. He has tried Nutrisystem for weight loss and he did lose weight. He has tried Keto diet. His brother has troubles with his weight as well. He denies previous abdominal surgery. He comes in with lower back and hip pain. He has completed medical risk assessment and presents today for sleeve gastrectomy At height of 5 feet 4.5 inches, his ideal body weight is 144 pounds. His highest weight is 330 pounds, BMI 55.9. He comes in 302 pounds. His body mass index is 53.2. He is 148 pounds overweight. All surgical options for morbid obesity had been described using the [place] [facility] comorbidity resolution including complication risk score. A second-generation bariatric consent form was described in detail including the possibility of protein malnutrition, leaks, gastric stricture, venous thrombosis, gastroesophageal reflux disease, need for further surgery for which he demonstrated understanding. Benefits and risks of the procedure were described at length. Informed consent was obtained. DESCRIPTION: The patient was brought into the operating room theater. Preoperatively he had received Lovenox subcutaneously for DVT prophylaxis. Additionally he had Peridex oral solution as an oral decontaminant. After general induction, the abdomen was prepped and draped in standard sterile fashion. An Ioban draping was placed along the abdomen. No alonso catheter was placed. A robotic da Maria Isabel Xi system was prepped and primed. At 15 cm from the xiphoid, proposed port sites were marked with indelible marker along the anterior axillary line bilaterally, mid axillary line bilaterally with each ports were marked 10 to 15 cm from each other. The robotic stapler port was marked for the right midclavicular line. A 5 mm 0 degrees laparoscopic trocar entry was performed along the left upper quadrant. The abdomen was insufflated to 15 mmHg pressure he tolerated well. Diagnostic laparoscopy demonstrated no injury to bowel, viscera, or mesentery. The liver surface unremarkable with sharp liver edge consistent with his 2 week low carb high protein diet. No injury had occurred to the small bowel or viscera. Along the hiatus no recurrent hiatal hernia was found. A 8 mm port was placed along the right upper abdominal wall after exchanging the 5 mm port. A separate 8 mm port was placed along the left lateral abdominal wall. Please note that the ports were placed at least 20 cm away from the target anatomy. Care was taken to check each robotic arms were safely away from collision with the bed or the patient. At the epigastrium, a medium sized Lashonda liver retractor was placed under direct visualization with the Iron Atlassian Administrator placed under the right shoulder of the patient. Next, 12-mm robot stapler port was placed along the right upper quadrant. The camera 8-mm port was maintained along the epigastrium. The patient was repositioned in reverse Trendelenburg position at 21-degrees after lowering the bed. The robot was docked along the left side of the patient. Using a grasper for arm 4, a veseel sealer for arm 3, including grasper for arm 1, the robotic system was docked and primed as described. Instruments were interchanged by the funeral home assistant for stapler loads. The camera was placed at 30- degrees down. I had sat at the console. The pylorus was identified and 6 cm proximally along the greater curvature of the stomach, the short gastrics were mobilized upwards to the angle of His using a vessel sealer. Hemostasis was excellent during this portion of the procedure. Next, the upper pole of the stomach was adherent to the left jessee, which was gently dissected free using atraumatic grasper. The nursing screedman placed a 40-Canadian blunted tip bougie into the stomach. Robotic stapler black loads 60 mm x 2, green 60 mm x 4, and blue 60mm x 2 were used to create the sleeve. Initial firing was across the antrum of the stomach towards the angle of His. The staple line was completely hemostatic and linear without corkscrewing. Hemostasis was excellent. The space from the angularis incisura of the sleeve was approximately 4 cm. I then went to the head of the bed to perform the intraoperative esophagogastroduodenoscopy leak test. The upper pole of the stomach was bathed using normal saline solution. The scope was withdrawn with careful inspection along the staple line for which no leaks were found along the entire length. Additionally, the sleeve was completely hemostatic without any encroachment along the angularis incisura. Its topology was a soft "J". No stricture was encountered upon placement of the scope. The GI tract was desufflated. The patient tolerated this portion of the procedure well. The scope was completely withdrawn. The robot was undocked. I then rescrubbed into case, whereby the irrigation fluid was aspirated from the abdominal cavity. Tisseel fibrin sealant was placed along the staple length. Once dried the Lashonda liver retractor was removed. Attention was now brought to removal of the specimen. The distal end of the sleeve gastrectomy specimen was brought out through the 12 mm port at the left upper quadrant. The specimen was gently removed en total, corresponding to 31 cm x 6 cm sleeve gastrectomy specimen. No contamination had occurred during this process. All instruments and pneumoperitoneum including irrigation fluid was removed from the abdominal cavity. The 12 mm port site was irrigated with warm normal saline solution and diluted hydron peroxide. The 12-mm port site was reapproximated using 0 Vicryl and Andrew-Jessa of the left upper quadrant. The final incisions were closed using subcuticular interrupted suture of 4-0 Monocryl. Dermabond was applied to the skin once the skin had been cleansed. OptiFoam dressing was placed along the stomach extraction site. At the end of the procedure, needle, sponge, and instrument count was verified correct by the surgical instrument mechanic. The patient was taken to the postanesthesia care unit in stable condition. He had tolerated the procedure well. Intraoperative films and findings were reviewed with the patient's family.
[2021-08-01] MEDS: KETOROLAC 15 MG/ML 1 ML VIAL IVP SCH (18:45)
[2021-08-01] MEDS ORDERED: ONDANSETRON 4 MG/2 ML VIAL IVP ONE ×2 (18:58→19:42)
[2021-08-01] MEDS ORDERED: diphenhydrAMINE 50 MG/ML 1 ML VIAL ONE (19:09)
[2021-08-01] MEDS: ALBUTEROL NEBULIZED 2.5 MG/3 ML INHALATION SCH (20:06)
[2021-08-01] MEDS: SIMETHICONE 40 MG/0.6 ML DROPS 2,000 MG/30 ML BOTTLE PO SCH (20:38)
[2021-08-01] MEDS: 0.9% NACL WITH KCL 20 MEQ/L 1,000 ML IV SCH (20:38)
[2021-08-02] MEDS: ACETAMINOPHEN IV (For NPO) 1,000 MG in EMPTY BAG 1 BAG IVPB SCH ×4 (00:13→17:56)
[2021-08-02] MEDS: PIPERACILLIN-TAZOBACTAM 3.375 GM in SODIUM CHLORIDE 0.9% 100 ML IVPB SCH ×3 (00:13→15:40)
[2021-08-02] MEDS: KETOROLAC 15 MG/ML 1 ML VIAL IVP SCH ×4 (00:14→14:28)
[2021-08-02] MEDS: SIMETHICONE 40 MG/0.6 ML DROPS 2,000 MG/30 ML BOTTLE PO SCH ×5 (00:14→20:51)
[2021-08-02] MEDS: LISINOPRIL-HCTZ 20-12.5 MG 1 EACH TAB PO SCH ×3 (00:15→20:40)
[2021-08-02] MEDS: DEXAMETHASONE SOD PHOSPHATE 4 MG/ML 1 ML VIAL IV SCH ×4 (00:15→18:04)
[2021-08-02] MEDS: MONTELUKAST 10 MG TAB PO SCH ×2 (00:15→20:40)
[2021-08-02] MEDS: LORATADINE 10 MG TAB PO SCH ×2 (00:15→20:40)
[2021-08-02] MEDS: ONDANSETRON 4 MG/2 ML VIAL IVP SCH ×4 (00:16→18:03)
[2021-08-02] MEDS: 0.9% NACL WITH KCL 20 MEQ/L 1,000 ML IV SCH ×4 (05:27→19:24)
[2021-08-02] MEDS: HYDROmorphone 1 MG/ML 1 ML SYRINGE IVP PRN ×2 (05:59→20:49)
[2021-08-02] MEDS: SPIRONOLACTONE 25 MG TAB PO SCH (08:38)
[2021-08-02] MEDS: ENOXAPARIN 40 MG/0.4 ML SYRINGE SQ SCH (08:39)
[2021-08-02] MEDS: TAMSULOSIN 0.4 MG CAP.ER.24H PO SCH (08:39)
[2021-08-02] MEDS: PANTOPRAZOLE 40 MG/10 ML VIAL IV SCH (08:45)
[2021-08-02] MEDS: FLUTICASONE 110 MCG INHALER INHALATION SCH ×3 (09:15→19:36)
[2021-08-02] MEDS: ALBUTEROL NEBULIZED 2.5 MG/3 ML INHALATION SCH ×5 (09:15→19:36)
[2021-08-02 11:43] LABS: Basophils # (A) 0 X 10*3/uL (0.00-0.10); Basophils % (A) 0 %; Eosinophils # (A) 0 X 10*3/uL (0.04-0.35); Eosinophils % (A) 0 %; HCT 37.6 % (39.6-50.0); HGB 13.2 g/dL (13.0-17.0); Lymphocytes # (A) 0.38 X 10*3/uL (0.90-5.00); Lymphocytes % (A) 3.7 %; MCHC 35.1 g/dL (32.0-37.0); MCV 88.3 fL (80.0-97.0); Mean Platelet Volume 11.2 fL (9.5-12.2); Monocytes # (A) 0.39 X 10*3/uL (0.20-1.00); Monocytes % (A) 3.8 %; Neutrophils # (A) 9.35 X 10*3/uL (1.80-7.70); Platelet Count 236 X 10*3/uL (140-440); RBC 4.26 X 10*6/uL (4.40-5.60); RDW 13.4 % (11.5-14.5); WBC 10.17 X 10*3/uL (4.50-10.00)
[2021-08-02 13:38] VITALS: BMI 51.9
[2021-08-02 13:43] LABS: African American GFR (CKD) 51.6 (60.0-200.0); Anion Gap 12.3 mmol/L (4.00-12.00); Calcium 8.8 mg/dL (8.7-10.3); Carbon Dioxide 19.7 mmol/L (21.6-31.8); Non-African American GFR(CKD) 44.5 (60.0-200.0); Potassium 4.7 mmol/L (3.5-5.5)
--- NOTE | 2021-08-02 14:02 | FL ---
EXAMINATION TYPE: FL UGI DATE OF EXAM: 08/02/2021 COMPARISON: None HISTORY: Post gastric sleeve TECHNIQUE: A single contrast UGI study is performed. FINDINGS: Contrast passes from the distal esophagus through the gastric sleeve with mild hesitancy. N o extravasation of contrast is evident. No free air is noted during this examination. Overhead radiographs were obtained which are unremarkable. Fluoroscopy time: 30 seconds. Images: 46 IMPRESSIONS: 1. Normal post gastric sleeve without obstruction or hesitancy. No extravasation.
[2021-08-02] MEDS: LACTATED RINGERS 1,000 ML IV SCH (14:29)
[2021-08-02] MEDS ORDERED: SODIUM CHLORIDE 0.9% 1,000 ML IV ONE (15:43)
--- NOTE | 2021-08-02 23:41 | P.PN ---
Subjective Progress Note Date: 08/02/21 CHIEF COMPLAINT: Morbid obesity HISTORY OF PRESENT ILLNESS: Jerome Sánchez is a 65-year-old male status post sleeve gastrectomy, 08/01/2021. He is tolerating liquids. He completed an esophagram. Overnight he had troubles with urinary retention. He had to be straight. This evening, he is feeling fair. This pain is controlled. REVIEW OF ORGAN SYSTEMS: No fevers or chills. No dyspnea on exertion. No chest pain. PHYSICAL EXAM: VITAL SIGNS: Reviewed. GENERAL: Well-developed in no acute distress. HEENT: No scleral icterus. Extraocular movements grossly intact. Hears conversational speech. No nasal drainage. NECK: Supple without lymphadenopathy. CHEST: Nonlabored respirations with equal bilateral excursions. CARDIOVASCULAR: Regular rate and regular rhythm. Distal 2+ pulses. ABDOMEN: Obese. Resting tach. Incisions intact. MUSCULOSKELETAL: No clubbing, cyanosis. Ambulates with a cane NEURO: No focal or lateralizing signs. Cranial nerves 2 through 12 grossly within normal limits. PSYCH: Appropriate affect. Alert and oriented to person, place and time. SKIN: Good skin turgor. Well perfused. LABS: Review of her pre-existing leukocytosis, WBC of 13,000 down to over 10,00 0. ASSESSMENT: 1. Morbid obesity due to excess calories 2. Body mass index of 54.1, initial 3. Osteoarthritis of the knees. 4. Osteoarthritis of the lower back. 5. Hypertensive heart disease with congestive heart failure 6. Chronic obstructive pulmonary disease 7. Obstructive sleep apnea 8. Diverticulitis of the colon. 9. Osteoarthritis of the hips 10. Status post sleeve gastrectomy for obesity 11. Urinary retention 12. Leukocytosis, pre-existing PLAN: 1. Recommend Flomax daily 2. Will remove Olivier catheter tomorrow. 3. IV fluid hydration for dehydration 4. Disposition in 24 hours Objective - Vital Signs Vital signs: Vital Signs Temp 99.6 F 08/02/21 14:02 Pulse 92 08/02/21 14:02 Resp 18 08/02/21 14:02 BP 100/63 08/02/21 14:02 Pulse Ox 95 08/02/21 14:02 Intake & Output 08/01/21 08/02/21 08/02/21 18:59 06:59 18:59 Intake Total 1700 350 Output Total 5 1100 2270 Balance 1695 -750 -2270 Weight 137.3 kg 137.3 kg Intake: IV 1700 350 Output: Urine 1100 2270 Estimated Blood Loss 5 Other: # Bowel Movements 0 - Labs CBC & Chem 7: 08/02/21 06:54 08/02/21 06:54 Labs: Abnormal Lab Results - Last 24 Hours (Table) 08/02/21 08/02/21 Range/Units 06:54 06:54 WBC 10.17 H (4.50-10.00) X 10*3/uL RBC 4.26 L (4.40-5.60) X 10*6/uL Hct 37.6 L (39.6-50.0) % Immature Gran # 0.05 H (0.00-0.04) X 10*3/uL Neutrophils # 9.35 H (1.80-7.70) X 10*3/uL Lymphocytes # 0.38 L (0.90-5.00) X 10*3/uL Eosinophils # 0 L (0.04-0.35) X 10*3/uL Sodium 130 L (135-145) mmol/L Carbon Dioxide 19.7 L (21.6-31.8) mmol/L Anion Gap 12.30 H (4.00-12.00) mmol/L Creatinine 1.6 H (0.6-1.5) mg/dL Est GFR (CKD-EPI)AfAm 51.6 L (60.0-200.0) Est GFR (CKD-EPI)NonAf 44.5 L (60.0-200.0) Assessment and Plan (1) Status post laparoscopic sleeve gastrectomy Current Visit: Yes Status: Acute Code(s): Z98.84 - BARIATRIC SURGERY STATUS SNOMED Code(s): 733190793598649 (2) Body mass index (BMI) of 50-59.9 in adult Current Visit: Yes Status: Acute Code(s): Z68.43 - BODY MASS INDEX [BMI] 50.0-59.9, ADULT SNOMED Code(s): 452337512 (3) COPD (chronic obstructive pulmonary disease) Current Visit: Yes Status: Acute Code(s): J44.9 - CHRONIC OBSTRUCTIVE PU LMONARY DISEASE, UNSPECIFIED SNOMED Code(s): 73433844 (4) Hypertensive heart disease with congestive heart failure Current Visit: Yes Status: Acute Code(s): I11.0 - HYPERTENSIVE HEART DISEASE WITH HEART FAILURE SNOMED Code(s): 9537703 (5) Morbid obesity due to excess calories Current Visit: Yes Status: Acute Code(s): E66.01 - MORBID (SEVERE) OBESITY DUE TO EXCESS CALORIES SNOMED Code(s): 536575159 (6) Sleep apnea Current Visit: Yes Status: Acute Code(s): G47.30 - SLEEP APNEA, UNSPECIFIED SNOMED Code(s): 47964541
[2021-08-03] MEDS: ONDANSETRON 4 MG/2 ML VIAL IVP SCH ×3 (00:35→11:40)
[2021-08-03] MEDS: DEXAMETHASONE SOD PHOSPHATE 4 MG/ML 1 ML VIAL IV SCH ×3 (00:37→11:40)
[2021-08-03] MEDS: PIPERACILLIN-TAZOBACTAM 3.375 GM in SODIUM CHLORIDE 0.9% 100 ML IVPB SCH ×2 (00:39→08:56)
[2021-08-03] MEDS: KETOROLAC 15 MG/ML 1 ML VIAL IVP SCH ×3 (00:43→11:38)
[2021-08-03] MEDS: 0.9% NACL WITH KCL 20 MEQ/L 1,000 ML IV SCH ×2 (05:49→08:50)
[2021-08-03] MEDS: LACTATED RINGERS 1,000 ML IV SCH (05:50)
[2021-08-03] MEDS ORDERED: ALBUTEROL NEBULIZED 2.5 MG/3 ML INHALATION PRN (07:42)
[2021-08-03 08:15] VITALS: RESP 16
[2021-08-03] MEDS: TAMSULOSIN 0.4 MG CAP.ER.24H PO SCH (08:49)
[2021-08-03] MEDS: LISINOPRIL-HCTZ 20-12.5 MG 1 EACH TAB PO SCH (08:53)
[2021-08-03] MEDS: SPIRONOLACTONE 25 MG TAB PO SCH (08:53)
[2021-08-03] MEDS: ACETAMINOPHEN TAB 500 MG TAB PO SCH ×2 (08:54→11:37)
[2021-08-03] MEDS: ENOXAPARIN 40 MG/0.4 ML SYRINGE SQ SCH (08:56)
[2021-08-03] MEDS: PANTOPRAZOLE 40 MG/10 ML VIAL IV SCH (08:58)
[2021-08-03] MEDS: FLUTICASONE 110 MCG INHALER INHALATION SCH (09:16)
[2021-08-03] MEDS: ALBUTEROL NEBULIZED 2.5 MG/3 ML INHALATION SCH ×2 (09:20→12:17)
[2021-08-03 09:42] LABS: Basophils # (A) 0.01 X 10*3/uL (0.00-0.10); Basophils % (A) 0.1 %; Eosinophils # (A) 0 X 10*3/uL (0.04-0.35); Eosinophils % (A) 0 %; HCT 38.4 % (39.6-50.0); Lymphocytes # (A) 0.56 X 10*3/uL (0.90-5.00); Lymphocytes % (A) 4.2 %; MCH 30.7 pg (27.0-32.0); MCHC 33.9 g/dL (32.0-37.0); MCV 90.8 fL (80.0-97.0); Mean Platelet Volume 11.1 fL (9.5-12.2); Monocytes # (A) 0.87 X 10*3/uL (0.20-1.00); Monocytes % (A) 6.5 %; Neutrophils # (A) 11.87 X 10*3/uL (1.80-7.70); Neutrophils % (A) 88.6 %; Platelet Count 232 X 10*3/uL (140-440); RBC 4.23 X 10*6/uL (4.40-5.60); RDW 13.7 % (11.5-14.5); WBC 13.39 X 10*3/uL (4.50-10.00)
[2021-08-03] MEDS: SIMETHICONE 40 MG/0.6 ML DROPS 2,000 MG/30 ML BOTTLE PO SCH ×2 (10:24→12:34)
[2021-08-03 10:37] LABS: African American GFR (CKD) 60.7 (60.0-200.0); Anion Gap 8.4 mmol/L (4.00-12.00); BUN/Creat Ratio 16.43 Ratio (12.00-20.00); Calcium 9.1 mg/dL (8.7-10.3); Carbon Dioxide 22.6 mmol/L (21.6-31.8); Non-African American GFR(CKD) 52.4 (60.0-200.0); Potassium 4.9 mmol/L (3.5-5.5)
[2021-08-03 15:01] VITALS: BP 103/57; PULSE 76; TEMP 98.5
--- NOTE | 2021-08-03 15:36 | P.DS ---
<Meagan Brantley - Last Filed: 08/03/21 15:33> Providers Expected date of discharge: 08/03/21 Hospital Course: Discharge diagnosis 1. Morbid obesity due to excess calories status post Robotic assisted daVinci Xi laparoscopic sleeve gastrectomy 2. Body mass index of 54.1, initial 3. Osteoarthritis of the knees. 4. Osteoarthritis of the lower back. 5. Hypertensive heart disease with congestive heart failure 6. Chronic obstructive pulmonary disease 7. Obstructive sleep apnea 8. Diverticulitis of the colon. 9. Osteoarthritis of the hips 10. Leukocytosis, pre-existing 11. Hyponatremia, pre-existing 12. Dehydration Hospital course This is a 65-year-old male who comes with lifelong morbid obesity. He has friends who had the sleeve. He is looking into the sleeve as well. He ambulates with a cane. His highest weight was 330 pounds. He has tried Nutrisystem for weight loss and he did lose weight. He has tried Keto diet. His brother has troubles with his weight as well. He denies previous abdominal surgery. He comes in with lower back and hip pain. Patient is status post Robotic assisted daVinci Xi laparoscopic sleeve gastrectomy. Patient tolerated surgery well. His pain is controlled. He is tolerating the bariatric clear liquid diet. He is having flatus. He is urinating without difficulty. His upper GI showed no evidence of leak or obstruction. Patient is afebrile. Patient is stable for discharge. Physician Search Engine Marketing Specialist note has been reviewed by physician. Signing provider agrees with the documented findings, assessment, and plan of care. Patient Condition at Discharge: Stable Plan - Discharge Summary Discharge Rx Participant: Yes New Discharge Prescriptions: New bisacodyL [Dulcolax] 5 mg PO DAILY PRN #10 tab PRN Reason: Constipation Tamsulosin [Flomax] 0.4 mg PO DAILY #5 cap Omeprazole [PriLOSEC] 40 mg PO DAILY #30 cap Ondansetron Odt [Zofran Odt] 4 mg PO Q8HR PRN #9 tab PRN Reason: Nausea Simethicone 40 mg/0.6 ml Drops [Mylicon Drops] 40 mg PO PCHS PRN #30 ml PRN Reason: Gas Acetaminophen Tab [Tylenol Tab] 1,000 mg PO Q6HR PRN #30 tablet PRN Reason: Pain Continue Albuterol Inhaler [Ventolin Hfa Inhaler] 2 puff INHALATION RT-QID PRN PRN Reason: Shortness Of Breath Montelukast [Singulair] 10 mg PO HS Loratadine [Claritin] 10 mg PO HS traMADol HCL [Ultram] 100 mg PO Q12HR PRN PRN Reason: Pain Spironolactone 100 mg PO DAILY Potassium Chloride [Klor-Con 10 ER] 10 meq PO DAILY Budesonide [Pulmicort Flexhaler] 180 mg INHALATION DAILY Omeprazole [PriLOSEC] 40 mg PO DAILY #14 cap Discontinued Multivitamins, Thera [Multivitamin (formulary)] 1 tab PO DAILY Glucosamine Sulfate 500 mg PO BID Cyanocobalamin (Vitamin B-12) [Vitamin B-12] 1,000 mcg PO DAILY [place]-3/Dha/Epa/Fish Oil [Fish Oil 500 mg Softgel] 1 each PO BID Ginseng 250 mg PO BID Cholecalciferol [Vitamin D3 (25 Mcg = 1000 Iu)] 25 mcg PO BID Furosemide [Lasix] 40 mg PO BID Lisinopril-Hctz 20-12.5 mg [Zestoretic 20-12.5] 1 tab PO BID Aspirin [Adult Low Dose Aspirin EC] 81 mg PO DAILY Discharge Medication List Albuterol Inhaler [Ventolin Hfa Inhaler] 2 puff INHALATION RT-QID PRN 12/13/20 [History] Loratadine [Claritin] 10 mg PO HS 12/13/20 [History] Montelukast [Singulair] 10 mg PO HS 12/13/20 [History] Potassium Chloride [Klor-Con 10 ER] 10 meq PO DAILY 12/13/20 [History] Spironolactone 100 mg PO DAILY 12/13/20 [History] traMADol HCL [Ultram] 100 mg PO Q12HR PRN 12/13/20 [History] Omeprazole [PriLOSEC] 40 mg PO DAILY #14 cap 05/23/21 [Rx] Budesonide [Pulmicort Flexhaler] 180 mg INHALATION DAILY 08/01/21 [History] Acetaminophen Tab [Tylenol Tab] 1,000 mg PO Q6HR PRN #30 tablet 08/02/21 [Rx] Omeprazole [PriLOSEC] 40 mg PO DAILY #30 cap 08/02/21 [Rx] Ondansetron Odt [Zofran Odt] 4 mg PO Q8HR PRN #9 tab 08/02/21 [Rx] Simethicone 40 mg/0.6 ml Drops [Mylicon Drops] 40 mg PO PCHS PRN #30 ml 08/02/21 [Rx] Tamsulosin [Flomax] 0.4 mg PO DAILY #5 cap 08/02/21 [Rx] bisacodyL [Dulcolax] 5 mg PO DAILY PRN #10 tab 08/02/21 [Rx] Follow up Appointment(s)/Referral(s): [facility] [place], [place] [NON-STAFF] - 08/05/21 9:00 am (Please arrive to the clinic on 08/05/21 at 0900 for a follow up visit. ) Patient Instructions/Handouts: *Surgery [facility] - Managing Your Pain After Surgery Without Opioids, Abdominal Binder (DC), Nutrition after Bariatric Surgery (GEN), Laparoscopic Sleeve Gastrectomy (DC) Activity/Diet/Wound Care/Special Instructions: Liquid diet only for 2 weeks until August 15 No lifting over 4 pounds in 4 weeks, August 31March Shower. No soaking in bath tubs for 2 weeks, until August 15 Please notify your surgeon if you develop nausea and vomiting including new onset of abdominal pain. Continue to use incentive spirometry to prevent pneumonias. Please continue to ambulate at home to prevent blood clots in legs. Follow-up at the bariatric center. March shower. Dressings to be discontinued by surgeon in the office. Drink 64 oz of fluid daily. Start protein shakes on . Notify bariatric center for temp over 101.0, increased pain, drainage from incisions. No straws or carbonated beverages. Liquid diet only. Sugar content should be less than 6 g to avoid dumping syndrome. Take MOM for constipation. CRUSH, OPEN, OR CUT TABLETS LARGER THAN A SIZE OF A TIC TAC Discharge Disposition: HOME SELF-CARE <Fariha Quijano - Last Filed: 08/03/21 19:59> Providers Date of admission: 08/01/21 13:49 Attending physician: Fariha Quijano Primary care physician: Brock Mcgee - Discharge Diagnosis(es) (1) Status post laparoscopic sleeve gastrectomy Status: Acute (2) Body mass index (BMI) of 50-59.9 in adult Status: Acute (3) COPD (chronic obstructive pulmonary disease) Status: Acute (4) Hypertensive heart disease with congestive heart failure Status: Acute (5) Morbid obesity due to excess calories Status: Acute (6) Sleep apnea Status: Acute Hospital Course: As above. COURSE: Jerome Sánchez is a 65-year-old male status post sleeve gastrectomy, 08/01/2021. Postoperatively, patient was observed for urinary retention. He was tolerating a liquid diet. Esophagram was independently reviewed demonstrating no obstruction or leak. Patient was able to void. Medical reconciliation was performed. Discharge instructions were reviewed. Patient was stable for discharge. Procedures: OPERATION: 1. Robotic assisted daVinci Xi laparoscopic sleeve gastrectomy with 40-Thai bougie, multiport. 2. Intraoperative esophagogastroduodenoscopy. ANESTHESIA: Gen. local anesthetic ESTIMATED BLOOD LOSS: 5 mL SPECIMENS REMOVED: Sleeve gastrectomy COMPLICATIONS: None. FINDINGS: 1. Negative intraoperative esophagogastrojejunoscopy leak test. 2. No large hiatus hernia. 3. Total of 7 staplers used including 4 - 60 mm green, 2- 60 mm black, 1 - 60mm blue robot saroj used to create the gastric sleeve. 4. Sleeve gastrectomy 31 x 6 cm
== END 2021-08-03 17:14 | disposition home or self-care (01) | DRG 620 ==
LOC: 2ORMAIN 13:49 → 4SSUR 18:28
PROVIDERS: ADMIT Surgery Plastic and Reconstructive Surgery; ATTEND Surgery Plastic and Reconstructive Surgery
PROC: 0DJ08ZZ Inspection of Upper Intestinal Tract, Via Natural or Artificial Opening Endoscopic (ICD-10-PCS; 2021-08-01)
PROC: 8E0W4CZ Robotic Assisted Procedure of Trunk Region, Percutaneous Endoscopic Approach (ICD-10-PCS; 2021-08-01)
PROC: 0DB64Z3 Excision of Stomach, Percutaneous Endoscopic Approach, Vertical (ICD-10-PCS; principal; 2021-08-01 15:40)
DX: E66.01 Morbid (severe) obesity due to excess calories (principal); E87.1 Hypo-osmolality and hyponatremia; K57.32 Diverticulitis of large intestine without perforation or abscess without bleeding; Z68.43 Body mass index [BMI] 50.0-59.9, adult; M17.0 Bilateral primary osteoarthritis of knee; I11.0 Hypertensive heart disease with heart failure; G47.33 Obstructive sleep apnea (adult) (pediatric); J44.9 Chronic obstructive pulmonary disease, unspecified; R33.9 Retention of urine, unspecified; E86.0 Dehydration; I50.9 Heart failure, unspecified; Z20.822 Contact with and (suspected) exposure to COVID-19; M47.9 Spondylosis, unspecified; M16.0 Bilateral primary osteoarthritis of hip; R16.0 Hepatomegaly, not elsewhere classified; Z79.82 Long term (current) use of aspirin; Z79.899 Other long term (current) drug therapy; Z80.6 Family history of leukemia; Z83.3 Family history of diabetes mellitus; Z87.891 Personal history of nicotine dependence
CPT/HCPCS: 74240; 80048; 80051; 80053; 82310; 82565; 83735; 84100; 84520; 85025; 86850; 86900; 86901; 87635; 88307; 94640; 94760; 94762

== ENCOUNTER → 2021-09-29 | Outpatient (CLI) | payer MEDICARE ==
[2021-09-29 12:39] LABS: INR 1.1 (<1.2); Partial Thromboplastin Time 30.6 sec (22.0-30.0); Prothrombin Time 11.2 sec (9.0-12.0)
[2021-09-29 18:42] LABS: HCT 46.1 % (39.6-50.0); HGB 14.8 g/dL (13.0-17.0); MCH 29.1 pg (27.0-32.0); MCHC 32.1 g/dL (32.0-37.0); MCV 90.6 fL (80.0-97.0); Platelet Count 245 X 10*3/uL (140-440); RBC 5.09 X 10*6/uL (4.40-5.60); RDW 13.9 % (11.5-14.5); WBC 6.33 X 10*3/uL (4.50-10.00)
[2021-09-29 21:27] LABS: % Iron Saturation 12.22 (15.00-50.00); ALT 37 U/L (10-49); AST 40 U/L (14-35); African American GFR (CKD) 62.4 (60.0-200.0); Albumin 4.8 g/dL (3.8-4.9); Albumin/Globulin Ratio 1.89 (1.60-3.17); Alkaline Phosphatase 82 U/L (41-126); BUN/Creat Ratio 13.01 Ratio (12.00-20.00); Blood Urea Nitrogen 17.7 mg/dL (9.0-27.0); Calcium 9.9 mg/dL (8.7-10.3); Carbon Dioxide 26.1 mmol/L (21.6-31.8); Chloride 100 mmol/L (96-109); Chol/HDL Ratio 4.68 Ratio; Globulin 2.6 g/dL (1.6-3.3); Glucose 102 mg/dL (70-110); Iron 42 ug/dL (65-175); LDL Cholesterol,Calculated 105.4 mg/dL (0.0-131.0); Non-African American GFR(CKD) 53.8 (60.0-200.0); Phosphorus 3.7 mg/dL (2.4-5.1); Potassium 4.3 mmol/L (3.5-5.5); Sodium 143 mmol/L (135-145); Total Iron Binding Capacity 343 ug/dL (228-460); Total Protein 7.4 g/dL (6.2-8.2)
== END | disposition home or self-care (01) ==
LOC: LABWHC1 12:01
PROVIDERS: ATTEND Surgery Plastic and Reconstructive Surgery
DX: E44.0 Moderate protein-calorie malnutrition (principal); E55.9 Vitamin D deficiency, unspecified; E89.1 Postprocedural hypoinsulinemia; D50.8 Other iron deficiency anemias; N19 Unspecified kidney failure; K50.90 Crohn's disease, unspecified, without complications
CPT/HCPCS: 36415; 80053; 80061; 82306; 82525; 82607; 82728; 82746; 83036; 83540; 83550; 83735; 83970; 84100; 84134; 84255; 84425; 84443; 84590; 84630; 85027; 85610; 85730

== ENCOUNTER → 2022-01-18 | Outpatient (CLI) | payer MEDICARE ==
--- NOTE | 2022-01-18 15:57 | P.BASOAP ---
Subjective Progress Note Date: 01/18/22 DATE OF SERVICE: 01/18/2022 CHIEF COMPLAINT: Status post sleeve gastrectomy HISTORY OF PRESENT ILLNESS: Jerome Sánchez is a 66-year-old male status post sleeve gastrectomy, 08/01/2021. He is 6 months out. Patient reports low weight loss. He is not following his diet. His protein intake is low. At height of 5 feet 4.5 inches, his ideal body weight is 144 pounds. His highest weight is up to 336 pounds, BMI 57.0. He comes in 260 pounds from 275 pounds, 3 months ago. He has lost 15 pounds in 3 months. His body mass index is down 44.1. He is 116 pounds overweight. Lifetime weight loss of 76 pounds. Percent excess weight loss of 39 %. PHYSICAL EXAM: VITAL SIGNS: Height 5 foot 4.5 inches, weight 260 pounds. BMI 44.1 Vital Signs Temp 98 F 01/18/22 15:41 Pulse 85 01/18/22 15:41 Resp BP 142/85 01/18/22 15:41 Pulse Ox GENERAL: Well-developed in no acute distress. HEENT: No scleral icterus. Extraocular movements grossly intact. Hears conversational speech. No nasal drainage. NECK: Supple without lymphadenopathy. CHEST: Nonlabored respirations with equal bilateral excursions. CARDIOVASCULAR: Regular rate and regular rhythm. Distal 2+ pulses. ABDOMEN: Nontender, nondistended. No hernia. MUSCULOSKELETAL: No clubbing, cyanosis. Ambulates with a cane NEURO: No focal or lateralizing signs. Cranial nerves 2 through 12 grossly within normal limits. PSYCH: Appropriate affect. Alert and oriented to person, place and time. SKIN: Good skin turgor. Well perfused. LABS: Reviewed. ASSESSMENT: 1. Morbid obesity due to excess calories 2. Body mass index of 54.1 now 44.1 3. Osteoarthritis of the knees. 4. Osteoarthritis of the lower back. 5. Hypertensive heart disease. 6. Chronic obstructive pulmonary disease 7. Obstructive sleep apnea 8. Diverticulitis of the colon. 9. Osteoarthritis of the hips 10. Weight gain 11. Stage 3 chronic renal disease due to hypertension. 12. Iron deficiency anemia 13. Hypertriglyceridemia 14. Vitamin D deficiency 15. Zinc deficiency 16. Prostate disorder 17. Secondary hyperparathyroidism PLAN: 1. Recommend food journal. 2. Recommend bariatric labs. 3. Recommend review of carbohydrate intake including protein intake. 4. Follow-up in 1 month. 5. Also recommend to eat protein diet at least 75 grams daily Assessment/Plan Plan: Date: Initial Weight: 145.15 kg Initial BMI: Current Weight: Current BMI: Type of Surgery: Total Volume in Band: Previous Volume: Volume Removed: Volume Added: Band Size:
[2022-01-19 14:40] VITALS: BP 142/85; PULSE 85; TEMP 98; BMI 44.1
== END ==
LOC: BARWHC3 14:16
PROVIDERS: ATTEND Surgery Plastic and Reconstructive Surgery
DX: E66.01 Morbid (severe) obesity due to excess calories (principal); Z68.41 Body mass index [BMI] 40.0-44.9, adult; M17.0 Bilateral primary osteoarthritis of knee; G47.33 Obstructive sleep apnea (adult) (pediatric); M16.0 Bilateral primary osteoarthritis of hip; K57.32 Diverticulitis of large intestine without perforation or abscess without bleeding; J44.9 Chronic obstructive pulmonary disease, unspecified; M47.9 Spondylosis, unspecified; I13.10 Hypertensive heart and chronic kidney disease without heart failure, with stage 1 through stage 4 chronic kidney disease, or unspecified chronic kidney disease; N18.30 Chronic kidney disease, stage 3 unspecified; D50.9 Iron deficiency anemia, unspecified; E78.1 Pure hyperglyceridemia; E55.9 Vitamin D deficiency, unspecified; E60 Dietary zinc deficiency; E21.1 Secondary hyperparathyroidism, not elsewhere classified; N42.9 Disorder of prostate, unspecified; Z98.84 Bariatric surgery status; Z87.891 Personal history of nicotine dependence
CPT/HCPCS: 99211

== ENCOUNTER → 2022-03-15 | Outpatient (CLI) | payer MEDICARE ==
[2022-03-15 12:43] LABS: Partial Thromboplastin Time 27.4 sec (22.0-30.0); Prothrombin Time 10.9 sec (9.0-12.0)
[2022-03-15 18:30] LABS: HCT 47.2 % (39.6-50.0); HGB 15.6 g/dL (13.0-17.0); MCH 29.1 pg (27.0-32.0); MCHC 33.1 g/dL (32.0-37.0); MCV 87.9 fL (80.0-97.0); Mean Platelet Volume 10.1 fL (9.5-12.2); NRBC Per 100 WBC 0 /100 WBCS (0.0-0.0); Platelet Count 236 X 10*3/uL (140-440); RBC 5.37 X 10*6/uL (4.40-5.60); RDW 13.8 % (11.5-14.5); WBC 7.92 X 10*3/uL (4.50-10.00)
[2022-03-15 18:52] LABS: % Iron Saturation 31.68 (15.00-50.00); ALT 20 U/L (10-49); AST 22 U/L (14-35); African American GFR (CKD) 83.4 (60.0-200.0); Albumin 4.4 g/dL (3.8-4.9); Albumin/Globulin Ratio 1.58 (1.60-3.17); Alkaline Phosphatase 93 U/L (41-126); BUN/Creat Ratio 17.01 Ratio (12.00-20.00); Blood Urea Nitrogen 18.2 mg/dL (9.0-27.0); Calcium 10.1 mg/dL (8.7-10.3); Carbon Dioxide 27.3 mmol/L (20.0-27.5); Chloride 105 mmol/L (96-109); Globulin 2.8 g/dL (1.6-3.3); Glucose 86 mg/dL (70-110); Iron 102 ug/dL (65-175); Magnesium 2.1 mg/dL (1.5-2.4); Phosphorus 3.7 mg/dL (2.4-5.1); Potassium 5.4 mmol/L (3.5-5.5); Sodium 141 mmol/L (135-145); Total Iron Binding Capacity 322 ug/dL (228-460); Total Protein 7.2 g/dL (6.2-8.2)
[2022-03-15 19:08] LABS: LDL Cholesterol,Calculated 91.3 mg/dL (0.0-131.0); Prealbumin 24.9 mg/dL (18.0-42.0)
[2022-03-16 12:53] LABS: Zinc, Serum 65 ug/dL (60-130)
[2022-03-17 06:39] LABS: Vitamin A 60 ug/dL (38-106)
[2022-03-17 08:41] LABS: Vit B1(Thiamine) 83 ug/L (38-122)
== END | disposition home or self-care (01) ==
LOC: LABWHC1 11:01
PROVIDERS: ATTEND Surgery Plastic and Reconstructive Surgery
DX: E66.01 Morbid (severe) obesity due to excess calories (principal); E89.1 Postprocedural hypoinsulinemia; D50.8 Other iron deficiency anemias; K91.2 Postsurgical malabsorption, not elsewhere classified; E44.0 Moderate protein-calorie malnutrition; E44.1 Mild protein-calorie malnutrition; E45 Retarded development following protein-calorie malnutrition; K74.1 Hepatic sclerosis; E55.9 Vitamin D deficiency, unspecified; N19 Unspecified kidney failure; T56.894A Toxic effect of other metals, undetermined, initial encounter; K50.90 Crohn's disease, unspecified, without complications
CPT/HCPCS: 36415; 80053; 80061; 82306; 82525; 82607; 82728; 82746; 83036; 83540; 83550; 83735; 83970; 84100; 84134; 84255; 84425; 84443; 84590; 84630; 85027; 85610; 85730